=== PATIENT | female | born 1935 | race Caucasian/White ===

== ENCOUNTER 2023-10-10 15:04 | Emergency (ER) | payer MEDICARE, OTHER, SELFPAY ==
[~2023-10-10 15:04] MED LIST: Iopamidol 370 76% 100 ML VIAL ONE
[2023-10-10 15:52] LABS: #Basophils 0.1 thou/uL (0.0-0.2); #Lymphocytes 2.7 thou/uL (1.20-3.40); #Monocytes 0.4 thou/uL (0.11-0.59); %Basophils 0.8 % (0.0-1.0); %Eosinophils 0.7 % (0.0-10.0); %Lymphocytes 43.7 % (21.0-51.0); %Monocytes 5.9 % (0.0-10.0); %Neutrophils 48.9 % (42.0-75.0); Hematocrit 43.1 % (36.0-47.0); Hemoglobin 13.6 g/dL (12.0-16.0); Mean Corpuscular HGB CONC 31.6 g/dL (32.0-36.0); Mean Corpuscular Hemoglobin 28.9 pg (27.0-31.0); Mean Corpuscular Volume 91.6 fl (78.0-98.0); Mean Platelet Volume 6.2 fL (7.4-10.4); Platelet Count 260 10x3/uL (130-400); RBC Distribution Width 12.3 % (11.5-14.5); Red Blood Cell (RBC) Count 4.71 mill/uL (4.20-5.40); White Blood Cell (WBC) Count 6.1 10x3/uL (4.8-10.8)
[2023-10-10 15:59] LABS: Bilirubin Negative (Negative); Blood, Urine Trace (Negative); Glucose, Urine (Dipstick) Negative (Negative); Ketone, Urine Negative (Negative); Leukocyte Moderate (Negative); Nitrite Negative (Negative); Protein, Urine (Dipstick) Negative (Neg-Trace); Urobilinogen 0.2 mg/dL (Less than 2)
[2023-10-10 16:00] LABS: Clarity Hazy (Clear)
[2023-10-10 16:04] LABS: RBC/HPF 0-3 HPF (0-3)
[2023-10-10 16:05] LABS: CAUTI Indications for Culture Fever or rigors; Squamous Epithelial 0-3 HPF (0-3); Urine Culture Reflex No No
[2023-10-10 16:12] LABS: ALT (SGPT) 14 U/L (8-55); AST (SGOT) 18 U/L (5-34); Albumin 4.1 g/dL (3.4-4.8); Alkaline Phosphatase 73 U/L (40-110); Anion Gap 17 mmol/L (10-20); BUN (Urea Nitrogen) 15 mg/dL (9.8-20.1); Bilirubin, Total 0.3 mg/dL (0.2-1.2); Calc. Creatinine Clearance 0 mL/min (70-130); Calcium 9.7 mg/dL (7.8-10.44); Carbon Dioxide 25 mmol/L (23-31); Chloride 100 mmol/L (98-107); Estimated GFR 70; Globulin 3.6 g/dL (2.4-3.5); Glucose 92 mg/dL (83-110); Protein, Total 7.7 g/dL (5.8-8.1); Sodium 138 mmol/L (136-145)
== END 2023-10-10 18:21 | disposition home or self-care (01) ==
LOC: NAV ERS 15:04
DX: R55 Syncope and collapse (principal); R03.0 Elevated blood-pressure reading, without diagnosis of hypertension; R91.8 Other nonspecific abnormal finding of lung field; Z87.891 Personal history of nicotine dependence
CPT/HCPCS: 70450; 71045; 71260; 80053; 81001; 84443; 85025; 87086; 93005; Q9967